=== PATIENT | female | born 1990 | race Two or more races ===

== ENCOUNTER → 2019-06-07 | Outpatient (CLI) | payer OTHER ==
--- NOTE | 2019-06-07 18:32 | RADIOLOGY REPORT (SQ) ---
EXAM DESCRIPTION: MRI LUMBAR SPINE WITHOUT COMPLETED DATE/TIME: 06/07/2019 6:00 pm REASON FOR STUDY: M54.16 RADICULOPATHY, LUMBAR REGION M54.16 RADICULOPATHY, LUMBAR REGION COMPARISON: None. TECHNIQUE: Sagittal and Axial imaging includes T1, T2, STIR and gradient echo sequences. Coronal T2/ HASTE imaging. LIMITATIONS: None. FINDINGS: VISUALIZED UPPER ABDOMEN: Limited evaluation. No acute or suspicious findings suggested. SEGMENTATION: No transitional anatomy. The lowest well-developed disc space is labeled L5-S1. ALIGNMENT: Anatomic. VERTEBRAE: Intact. BONE MARROW: Normal. No marrow replacement or reactive changes. DISC SIGNAL: There is evidence of disc desiccation at L4-5 and L5-S1. POSTERIOR ELEMENTS: Generally intact. No pars defect evident. HARDWARE: None in the spine. CORD AND CONUS: Normal in size and signal intensity. Conus at the T12-L1 level. SOFT TISSUES: No aortic aneurysm seen. No bulky retroperitoneal adenopathy or mass. No paraspinal mas s or fluid. L1-L2: No significant spinal stenosis or exit foraminal stenosis. L2-L3: No significant spinal stenosis or exit foraminal stenosis. L3-L4: No significant spinal stenosis or exit foraminal stenosis. L4-L5: No significant spinal stenosis or exit foraminal stenosis. L5-S1: Broad-based disc bulge/protrusion that is asymmetrical to the right and results in mild right foraminal stenosis and may displace the traversing right nerve root slightly. Small annular tear. LOWER THORACIC: Incompletely imaged. No stenosis seen. SACRUM: Visualized upper sacrum intact. OTHER: No other significant findings. IMPRESSION: Disc changes at L5-S1 as described. There is a small annular tear. There are no findin gs that relate to the left side. TECHNICAL DOCUMENTATION: JOB ID: [id number] [employer]- All Rights Reserved Reading location - IP/workstation name: [email or web address]
== END ==
LOC: RAD 17:05
PROVIDERS: ATTEND Physician Assistant
DX: M51.17 Intervertebral disc disorders with radiculopathy, lumbosacral region (principal)
CPT/HCPCS: 72148

== ENCOUNTER 2019-12-09 15:40 | Emergency (ER) | payer OTHER ==
[2019-12-09] MEDS ORDERED: ONDANSETRON 4 MG TAB.RAPDIS PO ONE (16:20)
--- NOTE | 2019-12-09 16:29 | ER Document Report ---
ED Medical Screen (RME) - General Chief Complaint: Abdominal Pain Stated Complaint: ABDOMINAL PAIN/SHARP PAINS ON RIGHTSIDE Time Seen by Provider: 12/09/19 16:17 Primary Care Provider: KARAN NELSON PA [Primary Care Provider] - Follow up as needed Notes: Patient presents complaint of right upper quadrant abdominal pain that started today. Patient states pain does radiate around to the back as well. Patient reports nausea and diarrhea and feeling bloated. Patient also complains of heartburn. Patient states she also feels lethargic. Patient denies any significant medical history. I have greeted and performed a rapid initial assessment of this patient. A comprehensive ED assessment and evaluation of the patient, analysis of test results and completion of the medical decision making process will be conducted by additional ED providers. TRAVEL OUTSIDE OF THE [place] IN LAST 30 DAYS: No - Related Data Allergies/Adverse Reactions: No Known Allergies Allergy (Unverified 09/04/11 03:20) Physical Exam - Vital signs Vitals: Temp Pulse Resp BP Pulse Ox 99.3 F 58 L 20 143/88 H 99 12/09/19 16:04 12/09/19 16:04 12/09/19 16:04 12/09/19 16:04 12/09/19 16:04 - Abdominal Inspection: Morbidly Obese Tenderness: Tender - Right upper quadrant tenderness Course - Vital Signs Vital signs: Temp Pulse Resp BP Pulse Ox 99.3 F 58 L 20 143/88 H 99 12/09/19 16:04 12/09/19 16:04 12/09/19 16:04 12/09/19 16:04 12/09/19 16:04 Doctor's Discharge - Discharge Referrals: KARAN NELSON PA [Primary Care Provider] - Follow up as needed
[2019-12-09 17:02] LABS: APPEARANCE,URINE CLEAR; BILIRUBIN,URINE NEGATIVE (NEGATIVE); COLOR,URINE YELLOW; GLUCOSE, URINE NEGATIVE (NEGATIVE); KETONES,URINE NEGATIVE (NEGATIVE); LEUKOCYTE ESTERASE,URINE NEGATIVE (NEGATIVE); NITRITE,URINE NEGATIVE (NEGATIVE); PROTEIN,URINE NEGATIVE (NEGATIVE); URINE SPECIFIC GRAVITY 1.013; UROBILINOGEN,URINE NEGATIVE mg/dL (<2.0)
[2019-12-09 17:02] LABS: ABSOLUTE BASOPHILS # (AUTO) 0.1 10^3/uL (0.0-0.2); ABSOLUTE EOSINOPHILS # (AUTO) 0.2 10^3/uL (0.0-0.6); ABSOLUTE LYMPHOCYTES (AUTO) 2.3 10^3/uL (0.5-4.7); ABSOLUTE MONOCYTES (AUTO) 0.5 10^3/uL (0.1-1.4); ABSOLUTE NEUT (AUTO) 5.1 10^3/uL (1.7-8.2); BASOPHILS % (AUTO) 0.8 % (0-2); EOSINOPHILS % (AUTO) 2.2 % (0-6); HEMATOCRIT 32.2 % (36.0-47.0); HEMOGLOBIN 10.9 g/dL (12.0-15.5); LYMPHOCYTES % (AUTO) 28.6 % (13-45); MEAN CORPUSCULAR HEMOGLOBIN 25.8 pg (27.0-33.4); MEAN CORPUSCULAR HGB CONC 33.7 g/dL (32.0-36.0); MEAN CORPUSCULAR VOLUME 77 fl (80-97); MONOCYTES % (AUTO) 5.8 % (3-13); PLATELET COUNT 242 10^3/uL (150-450); RED BLOOD COUNT 4.21 10^6/uL (3.72-5.28); RED CELL DISTRIBUTION WIDTH 19.5 % (11.5-14.0); SEGMENTED NEUTROPHILS % (AUTO) 62.6 % (42-78); TOTAL CELLS COUNTED % (AUTO) 100 %; WHITE BLOOD COUNT 8.1 10^3/uL (4.0-10.5)
[2019-12-09 17:14] LABS: ALKALINE PHOSPHATASE 51 U/L (38-126); ANION GAP 8 (5-19); ASPARTATE AMINO TRANSFERASE 26 U/L (14-36); BILIRUBIN,TOTAL 0.2 mg/dL (0.2-1.3); BLOOD UREA NITROGEN 12 mg/dL (7-20); CALCIUM 8.7 mg/dL (8.4-10.2); CARBON DIOXIDE 26 mmol/L (22-30); CHLORIDE 103 mmol/L (98-107); GLUCOSE 87 mg/dL (75-110); POTASSIUM 3.9 mmol/L (3.6-5.0); TOTAL PROTEIN 6.8 g/dL (6.3-8.2)
--- NOTE | 2019-12-09 17:48 | RADIOLOGY REPORT (SQ) ---
EXAM DESCRIPTION: U/S ABDOMEN LIMITED W/O DOP COMPLETED DATE/TIME: 12/09/2019 5:13 pm REASON FOR STUDY: RUQ pain COMPARISON: None. TECHNIQUE: Dynamic and static grayscale images acquired of the abdomen and recorded on PACS. Additio nal selected color Doppler and spectral images recorded. LIMITATIONS: Overlying bowel gas. FINDINGS: PANCREAS: Partially obscured by overlying bowel gas. The visualized pancreas in the midli ne is unremarkable LIVER: Measures 16.5 cm. There is diffuse increased echogenicity of the liver, most consistent with fatty infiltration. LIVER VASCULATURE: Normal directional flow of the main portal vein. GALLBLADDER: Contracted gallbladder. The gallbladder wall measures 3.5 mm. There is a 3 mm echogeni c focus along the gallbladder wall. ULTRASOUND-DETECTED PLEITEZ'S SIGN: Negative. INTRAHEPATIC DUCTS AND COMMON DUCT: CBD and intrahepatic ducts normal caliber. INFERIOR VENA CAVA: Patent. AORTA: No aneurysm at the visualized segments. RIGHT KIDNEY: Measures 11.6 x 4.4 x 5.3 cm. Normal echogenicity. No hydronephrosis. No calcificatio ns. PERITONEAL AND RIGHT PLEURAL SPACE: No ascites or effusion. IMPRESSION: 1. Fatty infiltration of the liver. 2. Contracted gallbladder with mild diffuse wall thickening. 3 mm echogenic focus along the gallbla dder wall, may be secondary to an adherent stone or small polyp. If there is persistent clinical con cern for acute or chronic cholecystitis, hepatobiliary scan can be obtained for further evaluation. TECHNICAL DOCUMENTATION: JOB ID: [id number] [employer]- All Rights Reserved Reading location - IP/workstation name: [email or web address]
[2019-12-09] MEDS ORDERED: KETOROLAC TROMETHAMINE INJ/PF 30 MG/1 ML SDV IV ONE (18:34)
[2019-12-09] MEDS ORDERED: FAMOTIDINE INJ/PF 20 MG/2 ML SDV IV ONE (18:35)
[2019-12-09] MEDS ORDERED: NORMAL SALINE 1000 ML 1,000 ML IV ONE (18:36)
--- NOTE | 2019-12-09 18:36 | ER Document Report ---
ED GI/ - General Chief Complaint: Abdominal Pain Stated Complaint: ABDOMINAL PAIN/SHARP PAINS ON RIGHTSIDE Time Seen by Provider: 12/09/19 16:17 Primary Care Provider: KARAN NELSON PA [NO LOCAL MD] - Follow up as needed Notes: 29-year-old woman presents to the emergency department with a complaint of abdominal pain. She states that she been hurting intermittently for approximately 1 week. States it started as heartburn and has localized to the right upper quadrant abdominal pain. She has had nausea no vomiting and denies fever. TRAVEL OUTSIDE OF THE [place] IN LAST 30 DAYS: No - Related Data Allergies/Adverse Reactions: No Known Allergies Allergy (Unverified 09/04/11 03:20) Past Medical History - Social History Smoking Status: Never Smoker Frequency of alcohol use: None Drug Abuse: None Family History: Reviewed & Not Pertinent Patient has suicidal ideation: No Patient has homicidal ideation: No Review of Systems - Review of Systems Notes: Constitutional: Negative for fever. HENT: Negative for sore throat. Eyes: Negative for visual changes. Cardiovascular: Negative for chest pain. Respiratory: Negative for shortness of breath. Gastrointestinal: + abdominal pain Genitourinary: Negative for dysuria. Musculoskeletal: Negative for back pain. Skin: Negative for rash. Neurological: Negative for headaches, weakness or numbness. 10 point ROS negative except as marked above and in HPI. Physical Exam - Vital signs Vitals: Temp Pulse Resp BP Pulse Ox 99.3 F 58 L 20 143/88 H 99 12/09/19 16:04 12/09/19 16:04 12/09/19 16:04 12/09/19 16:04 12/09/19 16:04 - Notes Notes: PHYSICAL EXAMINATION: Physical Exam: General: Well-nourished well-developed in no acute distress HEENT: NC/AT, pupils equal round and reactive to light, MM moist,nares clear, Neck: supple, no adenopathy, no masses. Lungs: clear, no wheezing, no rales no rhonchi CVS: Regular rate and rhythm no murmur gallop or rub Abdomen: Soft active tenderness in the epigastric and right upper quadrant regions of the abdomen, no masses, no hepatosplenomegaly Ext: No edema clubbing or cyanosis. Neuro: Alert and responsive, moving all 4 extremities on command, cranial nerves intact. Skin: Intact no open lesions, no rash PSYCH: Normal mood, normal affect. Course - Re-evaluation Re-evalutation: 12/09/19 21:16 I reviewed the laboratory data and the ultrasound report. I explained to the patient that there is no acute pathology noted with normal liver functions and a normal white blood cell count. It is possible to have a dysfunctioning gallbladder and a HIDA scan may be an ideal of follow-up if she continues to have symptoms. Will treat with omeprazole and antispasmodic will follow-up with your primary care doctor as needed. The patient is in agreement with this plan. - Vital Signs Vital signs: Temp Pulse Resp BP Pulse Ox 98.0 F 55 L 16 136/76 H 99 12/09/19 21:53 12/09/19 21:53 12/09/19 21:53 12/09/19 21:53 12/09/19 21:53 - Laboratory Result Diagrams: 12/09/19 16:35 12/09/19 16:35 Laboratory results interpreted by me: 12/09/19 16:35 Hgb 10.9 L Hct 32.2 L MCV 77 L MCH 25.8 L RDW 19.5 H Discharge - Discharge Clinical Impression: Right upper quadrant abdominal pain, Epigastric abdominal pain Condition: Good Disposition: HOME, SELF-CARE Instructions: Abdominal Pain ([facility]), Antispasmodics ([facility]) Additional Instructions: You are diagnosed with abdominal pain which may be related to the gallbladder, ultrasound and laboratory data is not conclusive. Please avoid greasy foods, fried foods and meats which are fatty to prevent a recurrence of symptoms. You were given prescriptions for an antispasmodic dicyclomine and acid rao omeprazole for treatment of the symptoms. Please follow-up with your doctor regarding further testing, possible HIDA scan if your symptoms do not improve. Prescriptions: Dicyclomine HCl [Bentyl 10 mg Capsule] 1 cap PO TID #30 cap Omeprazole 40 mg PO DAILY #20 capsule.dr Referrals: KARAN NELSON PA [NO LOCAL MD] - Follow up as needed
[2019-12-09] MEDS ORDERED: DICYCLOMINE HCL INJ 20 MG/2 ML AMPULE IM ONE (21:12)
[2019-12-09 21:54] VITALS: BP 136/76
== END 2019-12-09 22:05 | disposition home or self-care (01) ==
LOC: ER 15:40
DX: R10.11 Right upper quadrant pain (principal); R10.13 Epigastric pain; R11.0 Nausea; R12 Heartburn
CPT/HCPCS: 99284; 96372; 96361; 96374; 96375; 36415; 83690; 84703; 85025; 80053; 81001; 76705; J0500; S0119; J1885; J7030; S0028